=== PATIENT | male | born 1945 | race Caucasian/White ===

== ENCOUNTER 2021-01-07 15:14 | Outpatient (CLI) | payer MEDICARE, SELFPAY ==
--- NOTE | ~2021-01-07 | XR_ITS ---
XR abdomen/kub 1V DATE: 01/07/2021 15:43 INDICATION: Hematuria, bladder infection TECHNIQUE: AP projection, 2 views COMPARISON: None FINDINGS: There is scoliosis and severe degenerative spurring of the thoracic and lumbar spine. Status post sternotomy. No bowel obstruction. There is a prominent amount of feces in the colon. The psoas shadows are inta ct. No visceromegaly is detected. The lung bases are clear. Normal heart size. No pleural effusion. IMPRESSION: Nonspecific abdomen Reviewed, dictated and finalized at [facility]. Reviewed, dictated and finalized at [facility]. IMPRESSION: Nonspecific abdomen
== END 2021-01-07 15:15 | disposition home or self-care (01) ==
LOC: ANHIMG 15:23
PROVIDERS: PCP Nurse Practitioner Family; Visit Provider Urology
DX: R31.0 Gross hematuria (principal)
CPT/HCPCS: 74018